=== PATIENT | male | born 1955 | race Caucasian/White ===

== ENCOUNTER 2017-03-05 08:36 | Emergency (ER) | payer MEDICAID ==
[~2017-03-05] VITALS: Ht 175.3 cm; Wt 107.0 kg
[2017-03-05 10:31] VITALS: BP 135/86
[2017-03-05 10:34] LABS: WHITE BLOOD COUNT 5.6 x10^3/uL (3.4-10)
[2017-03-05 10:46] LABS: ASPARTATE AMINO TRANSFERASE 69 U/L (15-37); BLOOD UREA NITROGEN 12 mg/dL (7-18)
== END 2017-03-05 11:55 | disposition home or self-care (01) ==
LOC: ED 10:16
DX: L42 Pityriasis rosea (principal)
CPT/HCPCS: 36415; 80053; 85025; 86592; 99284